=== PATIENT | female | born 1955 | race Caucasian/White ===

== ENCOUNTER 2019-09-28 10:33 | Emergency (ER) | payer OTHER, SELFPAY ==
[2019-09-28 10:35] VITALS: BP 174/102; PULSE 79; RESP 18; TEMP 37.3; O2SAT 98; BMI 31.3
--- NOTE | 2019-09-28 10:52 | HMH.EDGENADL ---
ED Disposition Clinical Impression: Cellulitis Qualifiers: Site of cellulitis: extremity Site of cellulitis of extremity: lower extremity Laterality: left Qualified Code(s): L03.116 - Cellulitis of left lower limb Disposition: Home, Self-Care Condition on Discharge: Good Instructions: Cellulitis Prescriptions: clindamycin HCL [Clindamycin HCl 300mg Cap] 300 mg PO Q8 #30 cap Transmission Status: Pending to [id number] Referrals: PCP,No [Primary Care Provider] - - Critical Care Critical Care Time: No Attestation: On , the high probability of a clinically significant, sudden or life threatening deterioration of the following system(s) required my full and direct attention, intervention and personal management. The time I documented below is in addition to time spent performing reported procedures but includes the following listed in this critical care notation. Medical Decision Making - Medical Records Medical records reviewed: Yes: I reviewed the patient's medical records. - Andrew Inquiry Pt receiving controlled substance: No Vital Signs: 09/28/19 10:35 Temperature 99.1 F Temperature Source Oral Pulse Rate [Left Radial] 79 Respiratory Rate 18 Blood Pressure [Right Arm] 174/102 H Blood Pressure Mean [Right Arm] 126 Blood Pressure Position [Right Arm] Sitting 02 Sat by Pulse Oximetry 98 Oxygen Delivery Method Room Air Orders (Tests/Meds): ED MEDICATIONS Generic Name Dose Route Start Last Admin Trade Name Freq PRN Reason Stop Dose Admin Clindamycin Phosphate 600 mg 09/28/19 11:00 Clindamycin 600mg Adv IM 10/12/19 10:59 Q6H YOLIS Protocol General Adult HPI - General Stated complaint: Bug bite or rash on top of L foot Time Seen by Provider: 09/28/19 10:45 Mode of Arrival: Ambulatory Source of Information: Patient Limitations: No Limitations Description of Symptoms (Recalled from ER Triage Doc. by RN): TO ED PER PVT CAR WITH C/O REDNESS, SWELLING LT FOOT X 2 DAYS. PT DENIES ANY FEVER, CHILLS, NAUSEA, VOMITING. - History of Present Illness HPI narrative: This is a 64-year-old female who presents with left foot redness and swelling. 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 Unsure whether or not she had insect bite prior to onset of symptoms. She denies any pain with ambulation or dorsiflexion. She denies any fevers and she has had no eruption or fluctuance from the area. No significant pain. Symptoms are neither palliated or provoked by any measure. Onset (ago): day(s) (1d) - Related Data Previous Rx's Medication Instructions Recorded clindamycin HCL [Clindamycin HCl 300 mg PO Q8 #30 cap 09/28/19 300mg Cap] Allergies Allergy/AdvReac Type Severity Reaction Status Date / Time No Known Allergies Allergy Verified 09/28/19 10:57 [facility] History - Hepatitis A Screen Drug use history?: No High risk sexual behaviors?: No History of sexually transmitted infection?: No Currently employed?: No Childcare worker?: No Do you have indoor plumbing?: Yes Do you have electricity?: Yes Attestation statement:: This patient has been screened for Hepatitis A risk factors. I have reviewed the patient's past medical history: Yes Medical History: Reports:: Hyperlipidemia, Hypertension Other Medical History: Reports: Other (hypothyroidism) Other Surgeries: Yes: Mitral Valve Replacement - Social History Alcohol Intake: never Occupational Status: other Housing: other Household Members: other ROS Obtained: Yes All systems reviewed & no additional complaints Physical Exam - General General appearance: alert, in no apparent distress - Respiratory Respiratory exam: Present: normal lung sounds bilaterally - Cardiovascular Cardiovascular exam: Present: regular rate, normal rhythm, normal heart sounds - Expanded Lower Extremity Exam Left Foot/toe exam: Present: swelling (L.dorsal surface of foot), erythema (L.dorsal
[2019-09-28 11:21] VITALS: BP 157/100; PULSE 87; RESP 18; TEMP 37.2; O2SAT 98
== END 2019-09-28 11:23 | disposition home or self-care (01) ==
LOC: ER 11:10
PROVIDERS: Emergency Provider Emergency Medicine
DX: L03.116 Cellulitis of left lower limb (principal); E03.9 Hypothyroidism, unspecified; E78.5 Hyperlipidemia, unspecified; I10 Essential (primary) hypertension
CPT/HCPCS: 99281

== ENCOUNTER 2020-07-17 15:20 | Emergency (ER) | payer OTHER, SELFPAY ==
[2020-07-17 15:21] VITALS: BP 163/112; PULSE 99; RESP 20; TEMP 36.6; O2SAT 96; BMI 33.2
[2020-07-17 15:54] VITALS: BP 163/112; PULSE 99; RESP 20; TEMP 36.7; O2SAT 96; BMI 33.3
[2020-07-17 16:19] VITALS: BP 144/94; PULSE 89; RESP 20; TEMP 36.7; O2SAT 96
--- NOTE | 2020-07-17 16:26 | HMH.EDUTC ---
[facility] [place] Disposition Clinical Impression: Laceration of left index finger Qualifiers: Encounter type: initial encounter Damage to nail status: without damage Foreign body presence: without foreign body Qualified Code(s): S61.211A - Laceration without foreign body of left index finger without damage to nail, initial encounter Disposition: Home, Self-Care Condition on Discharge: Good Instructions: How to Care for a Laceration After Repair, DI for Laceration Repair -- Simple Additional Instructions: Keep the wound clean and dry. Keep a dressing on it if you are going to be getting it dirty. Watch the for signs of infection, such as redness, swelling, drainage, fever. etc. Take tylenol for pain. Follow up with your regular doctor. Return in 10 days to have the sutures removed. GO TO THE ER FOR ANY WORSENING SYMPTOMS OR CONCERNS. If you start back bleeding, please hold pressure. If it doesn't stop then please return to the ER jose guadalupe. Prescriptions: cephALEXin [cephALEXin 500mg capsule] 500 mg PO Q6H 7 Days #28 cap Transmission Status: Received by [id number] Referrals: Markell Avina MD [Primary Care Provider] - Time of Disposition: 16:32 Medical Decision Making - Medical Records Medical records reviewed: No: I reviewed the patient's medical records. - Andrew Inquiry Pt receiving controlled substance: No Vital Signs: 07/17/20 15:21 07/17/20 15:54 07/17/20 16:19 Temperature 98 F 98.0 F 98.0 F Temperature Source Oral Oral Pulse Rate 89 Pulse Rate [Radial] 99 H 99 H Respiratory Rate 20 20 20 Blood Pressure 144/94 H Blood Pressure [Right Arm] 163/112 H 163/112 H Blood Pressure Mean [Right Arm] 129 129 Blood Pressure Source [Right Arm] Automatic Cuff Blood Pressure Position [Right Arm] Sitting 02 Sat by Pulse Oximetry 96 96 Oxygen Delivery Method Room Air Room Air Orders (Tests/Meds): ED MEDICATIONS Discontinued Medications Generic Name Dose Route Start Last Admin Trade Name Freq PRN Reason Stop Dose Admin Lidocaine HCl 5 ml 07/17/20 16:05 07/17/20 16:07 Lidocaine 1% 5ml Pf Vial SQ 07/17/20 16:06 5 ml ONCE ONE Administration Tetanus/Reduced Diphtheria/Acell Pertussis 0.5 ml 07/17/20 16:21 07/17/20 16:26 Tet/Diphth/Pert-Adult 0.5ml Syringe IM 07/17/20 16:22 0.5 ml .ONCE ONE Administration [facility] [place] HPI - General Stated complaint: AO cut R index finger w/ kitchen knife on blood Time Seen by Provider: 07/17/20 15:30 Mode of Arrival: Ambulatory Source of Information: Patient Limitations: No Limitations Description of Symptoms (Recalled from Triage Doc. by RN): Laceration to right index finger with kitchen knife while cutting bread. Pt on Eliquis HEENT Symptoms (Recalled from RN notes): No Resp Symptoms (Recalled from RN notes): No Skin Symptoms (Recalled from RN notes): Yes MS Symptoms (Recalled from RN notes): No Functional Status (Recalled from RN notes): wnl - History of Present Illness Provider Complaint: she was cutting a piece of sour dough bread when she slipped and cut the top of her left index finger. She takes eliquis for blood thinner due to a history of atrial fib. - Related Data Previous Rx's Medication Instructions Recorded atenolol 50 mg tablet 50 mg PO DAILY #30 tab 11/13/18 clindamycin HCL [Clindamycin HCl 300 mg PO Q8 #30 cap 09/28/19 300mg Cap] cephALEXin [cephALEXin 500mg 500 mg PO Q6H 7 Days #28 cap 07/17/20 capsule] Allergies Allergy/AdvReac Type Severity Reaction Status Date / Time chantell AdvReac Mild Diarrhea Verified 07/17/20 16:04 - Worker's Comp Is this a Worker's Comp case?: No [facility] History - Hepatitis A Screen Drug use history?: No High risk sexual behaviors?: No History of sexually transmitted infection?: No Currently employed?: No Childcare worker?: No Do you have indoor plumbing?: Yes Do you have electricity?: Yes Attestation statement:: This patient has be
== END 2020-07-17 16:37 | disposition home or self-care (01) ==
LOC: ER 15:41 → UTC 15:42
PROVIDERS: Emergency Provider Nurse Practitioner Family; PCP Family Medicine
DX: S61.211A Laceration without foreign body of left index finger without damage to nail, initial encounter (principal); W26.0XXA Contact with knife, initial encounter; Y92.010 Kitchen of single-family (private) house as the place of occurrence of the external cause; Z23 Encounter for immunization; I10 Essential (primary) hypertension; E78.5 Hyperlipidemia, unspecified; E03.9 Hypothyroidism, unspecified
CPT/HCPCS: 12001; 90471; 90715; 99202; G0463

== ENCOUNTER 2020-08-11 09:47 | Outpatient (RCR) | payer OTHER, SELFPAY | END 2020-10-25 10:54 | disposition home or self-care (01) | LOC: PT 09:47 | PROVIDERS: Visit Provider Physician Assistant Medical | DX: I25.10 Atherosclerotic heart disease of native coronary artery without angina pectoris (principal); I48.91 Unspecified atrial fibrillation; Z95.2 Presence of prosthetic heart valve | CPT/HCPCS: 93798 ==